=== PATIENT | female | born 2000 | race African-American/Black ===

== ENCOUNTER 2025-03-16 12:48 | Emergency (ER) | payer OTHER ==
--- NOTE | 2025-03-16 13:14 | EDPHYS ---
Physician Documentation [facility] Name: Nina Guadarrama Age: 24 yrs Sex: Female : 2000 Arrival Date: 03/16/2025 Time: 12:48 Bed 5 Private MD: ED Physician Oswaldo Barillas HPI: 03/16 13:08 This 24 yrs old Black Female presents to ER via Ambulatory with complaints of 5wks sp3 , Toothache. 13:08 24-year-old female, 5 weeks , here for pain at mandibular fourth incisor sp3 secondary to self extraction (her tooth fell out). This occurred 2 days ago and patient has been putting Orajel on it. She presents with pain and redness to that area. She denies any fever, swollen lymph nodes or any other signs or symptoms on ROS at this time.. 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 - Infectious Disease History:: Denies. - Social history:: Smoking status: Patient/guardian denies using tobacco, Stopped _ months ago .5. ROS: 13:10 Constitutional: Negative for fever, chills, and weight loss, Eyes: Negative for injury, sp3 pain, redness, and discharge, Neck: Negative for injury, pain, and swelling, Cardiovascular: Negative for chest pain, palpitations, and edema, Respiratory: Negative for shortness of breath, cough, wheezing, and pleuritic chest pain, Abdomen/GI: Negative for abdominal pain, nausea, vomiting, diarrhea, and constipation, Back: Negative for injury and pain, MS/Extremity: Negative for injury and deformity, Skin: Negative for injury, rash, and discoloration, Neuro: Negative for headache, weakness, numbness, tingling, and seizure, Psych: Negative for depression, anxiety, suicide ideation, homicidal ideation, and hallucinations, Allergy/Immunology: Negative for hives, rash, and allergies, 13:10 All other systems are negative, Exam: 13:11 Constitutional: This is a well developed, well nourished patient who is awake, alert, sp3 and in no acute distress. Head/Face: Normocephalic, atraumatic. Eyes: Pupils equal round and reactive to light, extra-ocular motions intact. Lids and lashes normal. Conjunctiva and sclera are non-icteric and not injected. Cornea within normal limits. Periorbital areas with no swelling, redness, or edema. Neck: Trachea midline, no thyromegaly or masses palpated, and no cervical lymphadenopathy. Supple, full range of motion without nuchal rigidity, or vertebral point tenderness. No Meningismus. Chest/axilla: Normal chest wall appearance and motion. Nontender with no deformity. No lesions are appreciated. Cardiovascular: Regular rate and rhythm with a normal S1 and S2. No gallops, murmurs, or rubs. Normal PMI, no JVD. No pulse deficits. 13:11 ENT: Pannicular right fourth incisor at socket with mild erythema. No obvious signs of abscess.. Vital Signs: 12:59 BP 147 / 90; Pulse 95; Resp 16; Temp 98.4; Pulse Ox 100% ; Weight 88 kg; Height 5 ft. 6 ll1 in. ; Pain 8/10; 13:18 BP 140 / 87; Pulse 97; Resp 16; Pulse Ox 100% ; ll1 12:59 Body Mass Index 31.31 (88.00 kg, 167.64 cm) ll1 12:59 Pain Scale: Adult ll1 MDM: 13:00 Medical Screening Exam initiated sp3 13:12 Data reviewed: vital signs, nurses notes. ED course: 24-year-old female with dental sp3 socket pain. Differential diagnosis includes nerve pain versus early infection. Since patient is , we will go ahead and start Augmentin and treat with tramadol only. Tylenol as needed as well. I have discussed with patient med patient's during including NSAIDs. She acknowledges and will follow-up with her PCP and/or dentist.. Administered Medications: No medications were administered Disposition Summary: 03/16/25 13:13 Discharge Ordered Notes: Location: Home sp3 Condition: Stable sp3 Diagnosis - Dental socket pain, right mandible fourth incisor sp3 Followup: sp3 - With: Private Physician - When: Upon discharge from the Emergency Department - Reason: Continuance of care Discharge Instructions: - Discharge Summary Sheet sp3 - Dental Pain sp3 Forms: - Medication Reconciliation Form sp3 - Antibiotic Education sp3 - Prescription Opioid Use sp3 - Patient Portal Instructions sp3 - Leadership Thank You Letter sp3 Prescriptions: - Augmentin 875-125 mg Oral Tablet - take 1 tablet ORAL route every 12 hours for 10 days; 20 tablet; Refills: 0, sp3 Product Selection Permitted - Tramadol 50 mg Oral Tablet - take 1 tablet ORAL route every 8 hours as needed; 12 tablet; Refills: 0, sp3 Product Selection Permitted Signatures: Suzette Almeida RN RN ll1 Oswaldo Barillas MD MD sp3
--- NOTE | 2025-03-16 13:14 | ER ---
Nurse's Notes [facility] Name: Nina Guadarrama Age: 24 yrs Sex: Female : 2000 Arrival Date: 03/16/2025 Time: 12:48 Bed 5 Private MD: Diagnosis: Dental socket pain, right mandible fourth incisor Presentation: 03/16 12:59 Chief complaint: Patient states: Tooth broke off to R side of jaw area yesterday, pain ll1 since. No fever. About 5 weeks . Coronavirus screen: Client denies travel out of the [place] in the last 14 days. At this time, the client does not indicate any symptoms associated with coronavirus-19. Ebola Screen: Patient denies travel to an Ebola-affected area in the 21 days before illness onset. Initial Sepsis Screen: Does the patient meet any 2 criteria? No. Patient's initial sepsis screen is negative. Does the patient have a suspected source of infection? No. Patient's initial sepsis screen is negative. Risk Assessment: Do you want to hurt yourself or someone else? Patient reports no desire to harm self or others. Onset of symptoms was March 15, 2025. 12:59 Method Of Arrival: Ambulatory ll1 12:59 Acuity: LATISHA 4 ll1 Triage Assessment: 13:19 General: Appears in no apparent distress. Behavior is calm, cooperative, appropriate ll1 for age. Pain: Complains of pain in R jaw Quality of pain is described as aching. EENT: Reports pain in right jaw. Neuro: Reports headache. 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 - Infectious Disease History:: Denies. - Social history:: Smoking status: Patient/guardian denies using tobacco, Stopped _ months ago .5. Screenin:[address] [facility] ED Fall Risk Assessment (Adult) History of falling in the last 3 months, ll1 including since admission No falls in past 3 months (0 pts) Confusion or Disorientation No (0 pts) Intoxicated or Sedated No (0 pts) Impaired Gait No (0 pts) Mobility Assist Device Used No (0 pt) Altered Elimination No (0 pt) Score/Fall Risk Level 0 - 2 = Low Risk Maintained a safe environment, Hourly rounding (assess needs \T\ fall precautionary measures) done. Abuse screen: Denies threats or abuse. Nutritional screening: No deficits noted. Tuberculosis screening: No symptoms or risk factors identified. Assessment: 13:19 Reassessment: No changes from previously documented assessment. Patient and/or family ll1 updated on plan of care and expected duration. Pain level reassessed. Patient is alert, oriented x 3, equal unlabored respirations, skin warm/dry/pink. Vital Signs: 12:59 BP 147 / 90; Pulse 95; Resp 16; Temp 98.4; Pulse Ox 100% ; Weight 88 kg; Height 5 ft. 6 ll1 in. ; Pain 8/10; 13:18 BP 140 / 87; Pulse 97; Resp 16; Pulse Ox 100% ; ll1 12:59 Body Mass Index 31.31 (88.00 kg, 167.64 cm) ll1 12:59 Pain Scale: Adult ll1 ED Course: 12:50 Patient arrived in ED. mr 12:54 Arm band placed on Patient placed in an exam room, on a stretcher. ll1 13:00 Oswaldo Barillas MD is Attending Physician. sp3 13:01 Triage completed. ll1 13:05 Wesley Arellano, RN is Primary Nurse. bp 13:19 Patient has correct armband on for positive identification. Bed in low position. ll1 Provided Education on: ER procedures and process. 13:20 No provider procedures requiring assistance completed. Patient did not have IV access ll1 during this emergency room visit. Administered Medications: No medications were administered Medication: 13:20 VIS not applicable for this client. ll1 Outcome: 13:13 Discharge ordered by . sp3 13:20 Discharged to home ambulatory, 1 13:20 Condition: stable 13:20 Discharge instructions given to patient, Instructed on discharge instructions, follow up and referral plans. medication usage, Demonstrated understanding of instructions, follow-up care, medications, Prescriptions given X 2, 13:20 Patient left the ED. ll1 Signatures: Aleja Hatfield, Reg Reg mr Wesley Arellano, CLYDE RN Suzette Rae RN RN 1 Barillas, Setul, MD MD sp3
[2025-03-16 13:25] VITALS: TEMP 98.4; O2SAT 100
[2025-03-16 13:26] VITALS: BP 140/87
== END 2025-03-16 13:20 | disposition home or self-care (01) ==
LOC: ER 12:48
DX: O99.611 Diseases of the digestive system complicating pregnancy, first trimester (principal); K08.89 Other specified disorders of teeth and supporting structures; Z3A.01 Less than 8 weeks gestation of pregnancy
CPT/HCPCS: 99283